=== PATIENT | female | born 1935 | race Hispanic/Latino ===

== ENCOUNTER 2021-10-13 08:34 | Emergency (ER) | payer MEDICARE ==
[~2021-10-13] VITALS: Ht 152.4 cm; Wt 73.9 kg
[2021-10-13] MEDS ORDERED: HYDROCODONE/ACETAMINOPHEN 5/325 MG TAB PO SCH (09:30)
[2021-10-13] MEDS ORDERED: ACET1TAB25 PO (10:02)
[2021-10-13 10:24] VITALS: BP 156/41
== END 2021-10-13 10:28 | disposition home or self-care (01) ==
LOC: EDH 08:34
DX: S52.502A Unspecified fracture of the lower end of left radius, initial encounter for closed fracture (principal); I10 Essential (primary) hypertension; Z88.0 Allergy status to penicillin; Z90.49 Acquired absence of other specified parts of digestive tract; W18.39XA Other fall on same level, initial encounter; Y93.89 Activity, other specified; Y92.89 Other specified places as the place of occurrence of the external cause; Y99.8 Other external cause status
CPT/HCPCS: 29125; 73110

== ENCOUNTER 2024-02-15 06:45 | Observation (INO) | payer OTHER, MEDICARE ==
[2024-02-09 11:04] LABS: BASOPHILS # (AUTO) 0.05 K/uL (0.00-0.20); BASOPHILS % (AUTO) 0.7 % (0.0-5.0); EOSINOPHILS # (AUTO) 0.24 K/uL (0.00-0.70); EOSINOPHILS % (AUTO) 3.5 % (0.0-8.0); HEMATOCRIT 32.9 % (36-48); IMMATURE GRANULOCYTE ABSOLUTE 0.02 K/uL (0-1); LYMPHOCYTES # (AUTO) 2.4 K/uL (1.0-4.8); MEAN CORPUSCULAR HEMOGLOBIN 29.2 pg (27.0-33.0); MEAN CORPUSCULAR HGB CONC 32.2 g/dL (32.0-36.0); MEAN CORPUSCULAR VOLUME 90.6 fL (79-99); MONOCYTES # (AUTO) 0.8 K/uL (0.1-1.0); MONOCYTES % (AUTO) 11.4 % (3.0-13.0); NEUTROPHILS # (AUTO) 3.4 K/uL (1.8-7.7); NEUTROPHILS % (AUTO) 49.1 % (40.0-77.0); PLATELET COUNT (AUTO) 323 K/uL (130-400); RED BLOOD CELL COUNT(AUTO) 3.63 MIL/uL (4.00-5.50); RED CELL DISTRIBUTION WIDTH 13.3 % (11.0-15.5); WHITE BLOOD COUNT (AUTO) 6.9 K/uL (4.8-10.8)
[2024-02-09 11:06] LABS: APPEARANCE,URINE CLEAR (CLEAR); BILIRUBIN,URINE NEGATIVE (NEGATIVE); COLOR,URINE YELLOW (YELLOW); GLUCOSE, URINE (UA) NEGATIVE (NEGATIVE); KETONES,URINE NEGATIVE (NEGATIVE); LEUKOCYTE ESTERASE ,URINE NEGATIVE Leu/uL (NEGATIVE); NITRATE,URINE NEGATIVE (NEGATIVE); OCCULT BLOOD,URINE NEGATIVE (NEGATIVE); PROTEIN,URINE 20 mg/dL (NEGATIVE); UROBILINOGEN,URINE 0.2 mg/dL (0.2-1.0)
[2024-02-09 11:10] LABS: INR <= 0.93 (0.85-1.15); PROTHROMBIN TIME 10.6 SEC (9.6-11.6)
[2024-02-09 11:11] LABS: PARTIAL THROMBOPLASTIN TIME 29.8 SEC (26.3-35.5)
[2024-02-09 11:16] LABS: ALBUMIN 3.7 g/dL (3.5-5.0); CARBON DIOXIDE 26 mmol/L (21-32); CHLORIDE 104 mmol/L (101-111); CREATININE 0.6 mg/dL (0.5-1.0); GLOMERULAR FILTR. RATE CALC 86 mL/min (>90); GLUCOSE,RANDOM 109 mg/dL (70-105); POTASSIUM 4.1 mmol/L (3.5-5.1); SODIUM SERUM 140 mmol/L (136-145); UREA NITROGEN, BLOOD 14 mg/dL (7-18)
[2024-02-09 11:34] VITALS: BP 193/70; PULSE 64; RESP 16
[2024-02-09 12:03] LABS: ADD UA MICROSCOPIC YES
[2024-02-09 12:09] LABS: BACTERIA,URINE MOD /HPF (None Seen); MUCUS,URINE RARE LPF (None Seen); SQUAMOUS EPITHELIAL CELL,UR RARE /HPF (0-2)
[~2024-02-15] VITALS: Ht 149.9 cm; Wt 74.2 kg
[2024-02-15] VITALS (44 sets, daily range): BP systolic 105–159; BP diastolic 37–88; PULSE 66–103; RESP 15–19; O2SAT 99–100
[~2024-02-15 06:45] MED LIST: AMLO-257 PO; ATOR20TA65 PO; ESCI-8 PO; GABA300C PO; HYDR200T75 PO; IRBE300T26 PO; POTA10CA85 PO; SULF500T8 PO; TRAM50TA4 PO
[2024-02-15] MEDS ORDERED: KETOROLAC 30MG VIAL (30MG/ML) ONE (07:13)
[2024-02-15] MEDS ORDERED: ROPIVACAINE 0.5% 5MG/ML 30ML ONE ×2 (07:13→07:23)
[2024-02-15] MEDS ORDERED: LIDOCAINE PF 100MG/5ML (2%) SYRINGE 5ML ONE (07:19)
[2024-02-15] MEDS ORDERED: PROPOFOL 10 MG/ML 20ML VIAL IV ONE (07:20)
[2024-02-15] MEDS ORDERED: ROCURONIUM BROMIDE 10MG/1ML 5ML VL ONE (07:20)
[2024-02-15] MEDS ORDERED: FENTANYL CITRATE PF 50 MCG/1 ML 2ML VIAL ONE (07:20)
[2024-02-15] MEDS: LACTATED RINGERS 1000ML 1,000 ML IV ONE (07:25)
[2024-02-15] MEDS: FAMOTIDINE 20MG VIAL IV ONE (07:25)
[2024-02-15] MEDS: ACETAMINOPHEN 1,000 MG/100 ML VIAL IV ONE (07:25)
[2024-02-15] MEDS ORDERED: DEXAMETHASONE SOD PHOSPHATE 10MG/ML 1ML VIAL ONE (08:06)
[2024-02-15] MEDS ORDERED: ONDANSETRON 4MG INJ ONE (08:06)
[2024-02-15] MEDS ORDERED: EPHEDRINE SULFATE 50 MG/ML AMPULE ONE (08:16)
[2024-02-15] MEDS ORDERED: TRANEXAMIC ACID 1000MG/10ML ONE (08:18)
[2024-02-15] MEDS: CEFAZOLIN SODIUM 2 GM VIAL IVPB ONE (08:25)
[2024-02-15] MEDS: 0.9%NACL 1000ML 0 ML IV ONE (08:25)
[2024-02-15] MEDS: CEFAZOLIN SODIUM 2 GM VIAL ONE ×2 (08:25→15:16)
[2024-02-15] MEDS ORDERED: GLYCOPYRROLATE 0.2 MG/ML 5 ML VIAL ONE (09:55)
[2024-02-15] MEDS ORDERED: NEOSTIGMINE METHYLSULFATE 1MG/ML IV ONE (09:55)
[2024-02-15] MEDS ORDERED: POTASSIUM CHLORIDE 10% ELIXIR 20 MEQ/15 ML UDCUP PO PRN (10:30)
[2024-02-15] MEDS ORDERED: POTASSIUM CHLORIDE 20MEQ/100ML 100 ML IV PRN (10:30)
[2024-02-15] MEDS ORDERED: TRAMADOL HCL 50 MG TABLET PO PRN (10:30)
[2024-02-15] MEDS ORDERED: KCL 20 MEQ ERTAB PO PRN (10:30)
[2024-02-15] MEDS ORDERED: ONDANSETRON 4MG INJ IVP PRN (10:30)
[2024-02-15] MEDS ORDERED: FERROUS FUMARATE 324 MG TABLET PO PRN (10:30)
[2024-02-15] MEDS ORDERED: CYCLOBENZAPRINE HCL 10 MG TABLET PO PRN (10:30)
[2024-02-15] MEDS ORDERED: CALCIUM CARB 500MG PO PRN (10:30)
[2024-02-15] MEDS: FENTANYL CITRATE PF 50 MCG/1 ML 2ML VIAL ONE (11:03)
[2024-02-15] MEDS: MEPERIDINE-PF 25 MG/ML SYG ONE ×2 (11:13→11:22)
[2024-02-15] MEDS: KETOROLAC 15MG/ML VIAL (15MG/ML) ONE (11:28)
[2024-02-15] MEDS: 0.9%NACL 1000ML 1,000 ML IV SCH (19:19)
[2024-02-15] MEDS: KETOROLAC 15MG/ML VIAL (15MG/ML) IV SCH (19:19)
[2024-02-15] MEDS: CEFAZOLIN SODIUM 2 GM VIAL IVPB SCH (19:20)
[2024-02-15] MEDS: DOCUSATE SODIUM 100 MG CAP PO SCH (19:40)
[2024-02-15] MEDS: ACETAMINOPHEN WITH CODEINE 1 TAB TAB PO PRN (22:57)
[2024-02-16 03:59] VITALS: BP 140/55; PULSE 61; RESP 17
[2024-02-16 05:27] LABS: HEMATOCRIT 25.8 % (36-48); MEAN CORPUSCULAR HEMOGLOBIN 29.3 pg (27.0-33.0); MEAN CORPUSCULAR HGB CONC 33.3 g/dL (32.0-36.0); MEAN CORPUSCULAR VOLUME 87.8 fL (79-99); RED BLOOD CELL COUNT(AUTO) 2.94 MIL/uL (4.00-5.50); RED CELL DISTRIBUTION WIDTH 13.4 % (11.0-15.5); WHITE BLOOD COUNT (AUTO) 12.6 K/uL (4.8-10.8)
[2024-02-16 05:46] LABS: CREATININE 0.7 mg/dL (0.5-1.0); POTASSIUM 3.8 mmol/L (3.5-5.1)
[2024-02-16 07:30] VITALS: O2SAT 99
[2024-02-16 08:42] VITALS: BP 137/51; PULSE 68; RESP 18
[2024-02-16] MEDS: POLYETHYLENE GLYCOL 3350 17 GM POWD.PACK PO SCH (08:52)
[2024-02-16] MEDS: CITALOPRAM 20 MG TABLET PO SCH (08:53)
[2024-02-16] MEDS: POTASSIUM CHLORIDE 10MEQ SR TAB PO SCH (08:54)
[2024-02-16] MEDS: SULFASALAZINE 500 MG TAB.DR PO SCH (08:54)
[2024-02-16] MEDS: ASPIRIN 325MG EC TAB PO SCH (08:54)
[2024-02-16] MEDS: HYDROXYCHLOROQUINE SULFATE 200 MG TAB PO SCH (08:54)
[2024-02-16] MEDS: IRBESARTAN 300 MG PO SCH (09:00)
[2024-02-16 11:30] VITALS: BP 156/98; PULSE 66; RESP 18
[2024-02-16 16:39] VITALS: BP 137/48; PULSE 68; RESP 18
[2024-02-16] MEDS: KETOROLAC 15MG/ML VIAL (15MG/ML) IV PRN (18:14)
[2024-02-16] MEDS ORDERED: ACET-2079 PO (18:40)
[2024-02-16] MEDS ORDERED: ASPI-891 PO (18:40)
[2024-02-16] MEDS ORDERED: CYCL-309 PO (18:40)
[2024-02-16] MEDS ORDERED: DOCU-116 PO (18:40)
[2024-02-16] MEDS ORDERED: AMLODIPINE 5 MG TAB PO SCH (21:00)
[2024-02-16] MEDS ORDERED: ATORVASTATIN 20 MG TABLET PO SCH (21:00)
[2024-02-16] MEDS ORDERED: GABAPENTIN 300 MG CAPSULE PO SCH (21:00)
[2024-02-18] MEDS ORDERED: BISACODYL 10 MG SUPP.RECT RC PRN (10:30)
== END 2024-02-16 19:45 | disposition home or self-care (01) ==
LOC: DAH 06:45 → DAHIP 06:46 → 4DH 16:40
PROVIDERS: ADMIT Student in an Organized Health Care Education/Training Program; ATTEND Student in an Organized Health Care Education/Training Program
DX: M17.12 Unilateral primary osteoarthritis, left knee (principal); D62 Acute posthemorrhagic anemia; K21.9 Gastro-esophageal reflux disease without esophagitis; I10 Essential (primary) hypertension; E78.00 Pure hypercholesterolemia, unspecified; E78.5 Hyperlipidemia, unspecified; F32.A Depression, unspecified; Z79.899 Other long term (current) drug therapy
CPT/HCPCS: 82040; 80048 ×2; 85025; 85610; 85730; 87077; 87088; 87186; 84134; 86140; 81001; 36415 ×2; 87641; 96365; 96375; 64447; 27447; 73560; 97161; 97116 ×3; 97530 ×5; 96376; 85027; G0378 ×25; A4600; A4663; J7030; J7120 ×2; A4215 ×2; J3490 ×6; J3010 ×2; J1100; J2001; J2704; J2405; J1885 ×6; J2710; J2175 ×2; J2795 ×3; J0690 ×4; G0168; C1776 ×2; A4649 ×2; C1713; A6255; A5120; A4223; A4222; A4221

== ENCOUNTER → 2024-12-28 | Outpatient (CLI) | payer OTHER, MEDICARE ==
[~2024-12-28] MED LIST changes: +ACET-2079 PO; +ASPI-1197 PO; +ASPI-891 PO; +ATOR40TA69 PO; +CEFU500T67 PO; +CYCL-309 PO; +DOCU-116 PO; +GABA-534 PO; +IOHEXOL 350 MG/ML 100ML INFUS..BTL IV ONE; +METO25TA6 PO; -POTA10CA85 PO; +POTA10CA95 PO; -TRAM50TA4 PO
--- NOTE | 2024-12-28 12:29 | HMCIMG ---
CT ABDOMEN WITHOUT AND WITH CONTRAST. CT PELVIS WITHOUT AND WITH CONTRAST INDICATION: Cyst of pancreas TECHNIQUE: Routine transaxial images at 5 mm slice thickness were obtained prior to the administration of contrast material through the abdomen only, and after the intravenous infusion of 100 mL of Omnipaque 350 through the abdomen and pelvis without adverse effects. Delayed images of the abdomen and pelvis were also obtained. Coronal and sagittal reformatted imaging acquired for interpretation. CT was performed with one or more of the following dose reduction techniques: Automated exposure control, adjustment of the mA and/or kV according to patient size, or use of iterative reconstruction technique. COMPARISON: None FINDINGS: ABDOMEN: Heart size is normal. Visible lung bases are clear. The liver is normal in size and smooth in contour. Miniscule simple cyst within the superior right hepatic lobe. Intrahepatic biliary duct dilation and extrahepatic biliary ductal caliber measures up to 16.9 mm. The spleen is normal in size without lesions. The gallbladder is absent. The pancreas appears normal without pancreatic duct dilation. 1.4 cm simple nonenhancing cyst occupies the pancreatic neck/body junction on axial image 22 of series 3. The adrenal glands appear normal. A couple of miniscule simple left renal cysts and single miniscule simple right renal cyst. Cortical nephrograms are symmetric and normal in appearance bilaterally. No significant abdominal, retrocrural or retroperitoneal adenopathy noted.No evidence for intra-abdominal free air or organized fluid collection. Mild calcific plaque is noted along the abdominal aortic and iliac vessel shabazz without aneurysmal dilation or dissection. PELVIS: No evidence for free air or organized pelvic fluid collection. No significant pelvic adenopathy detected. Innumerable diverticula along the distal colon. Terminal ileum appears unremarkable. The appendix appears normal. The urinary bladder appears unremarkable. Visible osseous structures are intact. IMPRESSION: 1. Intrahepatic biliary duct dilation and extrahepatic biliary ductal caliber measures up to 16.9 mm, slightly more than expected for patient's age and after gallbladder removal, but may still represent a normal finding. However, correlation with bilirubin and alkaline phosphatase levels is still recommended. 2. 1.4 cm simple nonenhancing pancreatic cyst without pancreatic duct dilation or pancreatitis. 3. Extensive distal colonic diverticulosis. 4. Additional minor findings, postsurgical changes, and pertinent negatives as reported.
== END | disposition home or self-care (01) ==
LOC: RAH 10:40
PROVIDERS: ATTEND Surgery Surgical Oncology
DX: K86.2 Cyst of pancreas (principal); D64.9 Anemia, unspecified; R63.0 Anorexia; K76.89 Other specified diseases of liver; K57.30 Diverticulosis of large intestine without perforation or abscess without bleeding; N28.1 Cyst of kidney, acquired; I70.0 Atherosclerosis of aorta; Z90.49 Acquired absence of other specified parts of digestive tract
CPT/HCPCS: 74178; Q9967